=== PATIENT | female | born 1975 | race Caucasian/White ===

== ENCOUNTER → 2017-01-11 | Outpatient (CLI) | payer BC | END | disposition home or self-care (01) | LOC: MW.CHOBGYN 17:00 | PROVIDERS: ATTEND Nurse Practitioner Women's Health | DX: R39.9 Unspecified symptoms and signs involving the genitourinary system (principal) | CPT/HCPCS: 81001 ==

== ENCOUNTER → 2017-01-25 | Outpatient (CLI) | payer BC | LOC: MW.CHFP 09:33 | PROVIDERS: ATTEND Physician Assistant | DX: N39.0 Urinary tract infection, site not specified (principal) | CPT/HCPCS: 81001; 87086 ==

== ENCOUNTER → 2017-02-13 | Outpatient (CLI) | payer BC ==
--- NOTE | 2017-02-13 15:07 | CR ---
EXAMINATION: Right ankle HISTORY: Injury COMPARISON: None TECHNIQUE: 3 views FINDINGS/IMPRESSION: There is no acute osseous abnormality, dislocation, or fracture identified. The re is a well-corticated ossific density anterior to the tibiotalar joint, likely an old injury. The re is moderate soft tissue swelling noted most prominent along the medial malleolus. Joint spaces an d bone mineralization are grossly preserved.
== END ==
LOC: MW.CHFP 10:47
PROVIDERS: ATTEND Physician Assistant
DX: S99.911A Unspecified injury of right ankle, initial encounter (principal); M79.89 Other specified soft tissue disorders
CPT/HCPCS: 73610-26-RT; 73610-RT

== ENCOUNTER 2018-12-26 09:17 | Emergency (ER) | payer BC ==
--- NOTE | 2018-12-26 09:43 | EDM.PDOC ---
ED HPI GENERAL MEDICAL PROBLEM - General Chief Complaint: Lower Extremity Injury/Pain Stated Complaint: PAIN IN LEGS Time Seen by Provider: 12/26/18 09:29 - History of Present Illness INITIAL COMMENTS - FREE TEXT/NARRATIVE: HISTORY AND PHYSICAL: History of present illness: Patient's 43-year-old female presents concerned bilateral lower extremity pain who had recent surgery. She denies chest pain charts breath or other concern Review of systems: As per history of present illness and below otherwise all systems reviewed and negative. Past medical history: As per history of present illness and as reviewed below otherwise noncontributory. Surgical history: As per history of present illness and as reviewed below otherwise noncontributory. Social history: No reported history of drug or alcohol abuse. Family history: As per history of present illness and as reviewed below otherwise noncontributory. Physical exam: Extremities: Atraumatic, negative for cords . Neurovascular unremarkable. Diagnostics: Bilateral venous Doppler Therapeutics: None Impression: #1 Bilateral inferior extremity pain DVT ruled out Definitive disposition and diagnosis as appropriate pending reevaluation and review of above. bilateral calf Pain Score (Numeric/FACES): 3 - Related Data Allergies Allergy/AdvReac Type Severity Reaction Status Date / Time No Known Allergies Allergy Verified 12/26/18 09:26 Home Meds: Home Meds . 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: None Musculoskeletal History: Reports: None Neurological History: Reports: None Psychiatric History: Reports: None Endocrine/Metabolic History: Reports: None Hematologic History: Reports: None Immunologic History: Reports: None Oncologic (Cancer) History: Reports: None Dermatologic History: Reports: None - Past Surgical History Head Surgeries/Procedures: Reports: None HEENT Surgical History: Reports: None Cardiovascular Surgical History: Reports: None Respiratory Surgical History: Reports: None GI Surgical History: Reports: None Female Surgical History: Reports: Hysterectomy Endocrine Surgical History: Reports: None Neurological Surgical History: Reports: None Musculoskeletal Surgical History: Reports: None Oncologic Surgical History: Reports: None Dermatological Surgical History: Reports: None Social & Family History - Family History Family Medical History: Noncontributory - Tobacco Use Smoking Status *Q: Never Smoker Second Hand Smoke Exposure: No - Caffeine Use Caffeine Use: Reports: Soda - Recreational Drug Use Recreational Drug Use: No Review of Systems - Review of Systems Review Of Systems: ROS reveals no pertinent complaints other than HPI. ED EXAM, GENERAL - Physical Exam Exam: See Below (See dictation) Course - Vital Signs Last Recorded V/S: Last Vital Signs Temp 36.1 C 12/26/18 09:25 Pulse 89 12/26/18 09:25 Resp 18 12/26/18 09:25 BP 132/59 L 12/26/18 09:25 Pulse Ox 97 12/26/18 09:25 Departure - Departure Time of Disposition: 11:10 Disposition: Home, Self-Care 01 Condition: Good Clinical Impression: Encounter for medical screening examination, Leg pain - Discharge Information Referrals: Leo Morris MD [Primary Care Provider] - Forms: ED Department Discharge Additional Instructions: The following information is given to patients seen in the emergency department who are being discharged to home. This information is to outline your options for follow-up care. We provide all patients seen in our emergency department with a follow-up referral. The need for follow-up, as well as the timing and circumstances, are variable depending upon the specifics of your emergency department visit. If you don't have a primary care physician on staff, we will provide you with a referral. We always advise you to contact your personal physician following an emergency department visit to inform them of the circumstance of the visit and for follow-up with them and/or the need for any referrals to a consulting specialist. The emergency department will also refer you to a specialist when appropriate. This referral assures that you have the opportunity for followup care with a specialist. All of these measure are taken in an effort to provide you with optimal care, which includes your followup. Under all circumstances we always encourage you to contact your private physician who remains a resource for coordinating your care. When calling for followup care, please make the office aware that this follow-up is from your recent emergency room visit. If for any reason you are refused follow-up, please contact the [facility] emergency department at and asked to speak to the emergency department charge nurse. Follow-up primary medical doctor as needed as discussed and return as needed as discussed
--- NOTE | 2018-12-26 11:01 | US ---
ULTRASOUND EXAMINATION OF the left and right lower extremities WITH DOPPLER HISTORY: Pain FINDINGS: Examination of the left and right lower leg were performed from the groin to the calf region. All visualized segments including common femoral, proximal greater saphenous, superficial femoral, popliteal and calf veins appear patent with good compressibility and augmentation. There is no evidence of deep vein thrombosis. IMPRESSION: No evidence of a DVT.
== END 2018-12-26 11:21 | disposition home or self-care (01) ==
LOC: MW.ED 09:17
DX: M79.604 Pain in right leg (principal); M79.605 Pain in left leg; J45.909 Unspecified asthma, uncomplicated
CPT/HCPCS: 93970; 93970-26; 99283-25

== ENCOUNTER 2019-03-14 01:19 | Emergency (ER) | payer BC ==
[2019-03-14] MEDS ORDERED: Sodium Chloride 0.9% 10 ML Syringe FLUSH PRN (01:26)
[2019-03-14] MEDS ORDERED: Sodium Chloride 0.9% 2.5 ML Syringe FLUSH PRN (01:26)
[2019-03-14] MEDS ORDERED: Sodium Chloride 0.9% 1,000 ML IV ONE (01:28)
[2019-03-14] MEDS ORDERED: HYDROmorphone 1 MG/ML Syringe IVPUSH ONE ×2 (01:28→02:36)
[2019-03-14] MEDS ORDERED: Ondansetron 4 MG/2 ML SDV IVPUSH ONE (01:28)
--- NOTE | 2019-03-14 01:29 | EDM.PDOC ---
ED HPI GENERAL MEDICAL PROBLEM - General Stated Complaint: POSSIBLE BROKEN RIGHT ARM Time Seen by Provider: 03/14/19 01:20 - History of Present Illness INITIAL COMMENTS - FREE TEXT/NARRATIVE: HISTORY AND PHYSICAL: History of present illness: The patient is a 44-year-old female who presents after falling down 12 stairs as she was trying to prevent another person from falling. She did not hit her head pass out or blackout but impacted her right upper extremity and has severe pain to her elbow and wrist with deformity. Neurosensory is intact distally and she has no proximal humerus or shoulder pain and no other extremity complaints. The patient just recently underwent a hysterectomy and is currently taking no medication and is on no blood thinners. The patient denies any neck or back pain. She is not nauseated nor she thrown up and she has no chest wall pain shortness of breath abdominal pain or pelvic pain. She said That she had some alcohol earlier this evening. She has had no systemic complaints over the last few days and has been doing well since her surgery. The patient states solid food at lunchtime yesterday. She has only had liquids since that time Review of systems: As per history of present illness and below otherwise all systems reviewed and negative. Past medical history: As per history of present illness and as reviewed below otherwise noncontributory. Surgical history: As per history of present illness and as reviewed below otherwise noncontributory. Social history: No reported history of drug or alcohol abuse. Family history: As per history of present illness and as reviewed below otherwise noncontributory. Physical exam: General: Well-developed well-nourished female who is really in distress and vital signs were noted by me. She is very talkative and interactive and answering questions appropriately HEENT: Atraumatic, normocephalic, pupils reactive, negative for conjunctival pallor or scleral icterus, mucous membranes moist, throat clear, neck supple, nontender, trachea midline. Teeth are intact, there is no evidence of any facial swelling defects or deformities, no scalp defects or deformities and no midline step-offs tenderness defects of the cervical spine Lungs: Clear to auscultation, breath sounds equal bilaterally, chest nontender. Heart: S1S2, regular, rhythm and tachycardic rate of my evaluation, no overt murmurs Abdomen: Soft, nondistended, nontender. NABS. Negative for costovertebral tenderness. Pelvis: Stable nontender. Genitourinary: Deferred. Rectal: Deferred. Extremities: Atraumatic with full range of motion of all extremities with the exception of the right elbow and wrist where there is diffuse tenderness and swelling at the elbow with inhibited range of motion but no ecchymosis and soft tissue swelling defects and a dinner fork-like deformity seen at the wrist. Pulses are intact and cap refill is intact distally in the patient can move and wiggle the fingers. There is no mid forearm pain no humerus pain or clavicle shoulder pain defects or deformities. At the elbow there is tenderness with palpation of the olecranon and both medial and lateral humeral condyles and exam is difficult due to the soft tissue swelling. The compartments are all soft and there is no tenseness to the forearm.. Neurovascular unremarkable. Neuro: Awake, alert, oriented. Cranial nerves II through XII unremarkable. Cerebellum unremarkable. Motor and sensory unremarkable throughout. Exam nonfocal. Back: There are no midline step-offs tennis defects of the thoracic or lumbar spine no posterior rib or pelvis tenderness Diagnostics: CBC CMP alcohol level x-ray of right wrist and elbow, PT/INR,CT Head Therapeutics: IV fluids Zofran Dilaudid [id number]: case was discussed with the orthopedic surgeon on-call at [facility] , Dr. Smith and he accepts the patient for transfer. He is aware that we do not have orthopedics coverage and that this fracture needs reduction and further care. I have sent the films to [facility] for their review. Case was also discussed with Dr. Huff at 2:30 AM who is aware of the case and accepts. I discussed the x-ray results and shown them to the patient at bedside. She is aware that we do not have orthopedics coverage and that reduction of this fracture needs to be done under sedation and will potentially need operative intervention. We will arrange for transfer to [facility]. She says that she last ate solid food at lunchtime and has only had liquids. She is awake alert interactive and oriented. Pulses are still intact distally and she has good cap refill. I will discuss the [place] of a long arm post mold with the patient and see whether or not she is agreeable. Up to this point she has not been agreeable to anything more than a prefab Styrofoam a cardboard splint. Impression: Comminuted displaced and overriding distal radial fracture with radial head fracture, ulnar styloid fracture all status post fall Definitive disposition and diagnosis as appropriate pending reevaluation and review of above. right forearm Pain Score (Numeric/FACES): 10 - Related Data Allergies Allergy/AdvReac Type Severity Reaction Status Date / Time No Known Allergies Allergy Verified 03/14/19 01:35 Home Meds: Home Meds . [No Known Home Meds] 12/26/18 [History] Past Medical History HEENT History: Reports: None Cardiovascular History: Reports: None Respiratory History: Reports: Asthma Gastrointestinal History: Reports: None Genitourinary History: Reports: UTI, Recurrent TRICHOLOGIST History: Reports: None Musculoskeletal History: Reports: None Neurological History: Reports: None Psychiatric History: Reports: None Endocrine/Metabolic History: Reports: None Hematologic History: Reports: None Immunologic History: Reports: None Oncologic (Cancer) History: Reports: None Dermatologic History: Reports: None - Past Surgical History Head Surgeries/Procedures: Reports: None HEENT Surgical History: Reports: None Cardiovascular Surgical History: Reports: None Respiratory Surgical History: Reports: None GI Surgical History: Reports: None Female Surgical History: Reports: Hysterectomy Endocrine Surgical History: Reports: None Neurological Surgical History: Reports: None Musculoskeletal Surgical History: Reports: None Oncologic Surgical History: Reports: None Dermatological Surgical History: Reports: None Social & Family History - Family History Family Medical History: Noncontributory - Caffeine Use Caffeine Use: Reports: Soda ED ROS GENERAL - Review of Systems Review Of Systems: ROS reveals no pertinent complaints other than HPI. ED EXAM, GENERAL - Physical Exam Exam: See Below (See dictation) Course - Vital Signs Last Recorded V/S: Last Vital Signs Temp 36.2 C 03/14/19 02:30 Pulse 78 03/14/19 02:30 Resp 18 03/14/19 02:30 BP 98/61 03/14/19 02:30 Pulse Ox 96 03/14/19 02:30 - Orders/Labs/Meds Orders: Active Orders 24 hr Category Date Time Status Head wo Cont [CT] Stat Exams 03/14/19 02:27 Ordered Sodium Chloride 0.9% @ 150 MLS/HR (1,000ml) Med 03/14/19 02:45 Ordered Sodium Chloride 0.9% [Normal Saline] 1,000 ml IV ASDIRECTED Sodium Chloride 0.9% [Saline Flush] Med 03/14/19 01:26 Active 10 ml FLUSH ASDIRECTED PRN Sodium Chloride 0.9% [Saline Flush] Med 03/14/19 01:26 Active 2.5 ml FLUSH ASDIRECTED PRN Saline Lock Insert [OM.PC] Stat Oth 03/14/19 01:26 Ordered Medication Orders Sodium Chloride (Normal Saline) 1,000 mls @ 150 mls/hr IV ASDIRECTED EVETTE Sodium Chloride (Saline Flush) 10 ml FLUSH ASDIRECTED PRN PRN Reason: Keep Vein Open Sodium Chloride (Saline Flush) 2.5 ml FLUSH ASDIRECTED PRN PRN Reason: Keep Vein Open Labs: Laboratory Tests 03/14/19 03/14/19 03/14/19 Range/Units 01:50 01:50 01:50 WBC 12.97 H (4.0-11.0) K/uL RBC 4.78 (4.30-5.90) M/uL Hgb 13.9 (12.0-16.0) g/dL Hct 41.2 (36.0-46.0) % MCV 86.2 (80.0-98.0) fL MCH 29.1 (27.0-32.0) pg MCHC 33.7 (31.0-37.0) g/dL RDW Std Deviation 43.2 (28.0-62.0) fl RDW Coeff of Trevin 14 (11.0-15.0) % Plt Count 379 (150-400) K/uL MPV 9.40 (7.40-12.00) fL Neut % (Auto) 60.8 (48.0-80.0) % Lymph % (Auto) 32.8 (16.0-40.0) % Tift % (Auto) 5.6 (0.0-15.0) % Eos % (Auto) 0.6 (0.0-7.0) % Baso % (Auto) 0.2 (0.0-1.5) % Neut # (Auto) 7.9 H (1.4-5.7) K/uL Lymph # (Auto) 4.3 H (0.6-2.4) K/uL Tift # (Auto) 0.7 (0.0-0.8) K/uL Eos # (Auto) 0.1 (0.0-0.7) K/uL Baso # (Auto) 0.0 (0.0-0.1) K/uL INR 1.01 Sodium 140 (136-145) mmol/L Potassium 3.3 L (3.5-5.1) mmol/L Chloride 104 (98-107) mmol/L Carbon Dioxide 18.9 L (21.0-32.0) mmol/L BUN 11 (7.0-18.0) mg/dL Creatinine 1.2 H (0.6-1.0) mg/dL Est Cr Clr Drug Dosing 61.61 mL/min Estimated GFR (MDRD) 49.3 ml/min Glucose 130 H (74-106) mg/dL Calcium 8.7 (8.5-10.1) mg/dL Total Bilirubin 0.2 (0.2-1.0) mg/dL AST 16 (15-37) IU/L ALT 18 (14-63) IU/L Alkaline Phosphatase 86 (46-116) U/L Total Protein 7.9 (6.4-8.2) g/dL Albumin 4.1 (3.4-5.0) g/dL Globulin 3.8 (2.6-4.0) g/dL Albumin/Globulin Ratio 1.1 (0.9-1.6) Ethyl Alcohol 218 mg/dL Meds: Medications Generic Name Dose Route Start Last Admin Trade Name Freq PRN Reason Stop Dose Admin Sodium Chloride 1,000 mls @ 150 mls/hr 03/14/19 02:45 Normal Saline IV ASDIRECTED EVETTE Sodium Chloride 10 ml 03/14/19 01:26 Saline Flush FLUSH ASDIRECTED PRN Keep Vein Open Sodium Chloride 2.5 ml 03/14/19 01:26 Saline Flush FLUSH ASDIRECTED PRN Keep Vein Open Discontinued Medications Generic Name Dose Route Start Last Admin Trade Name Freq PRN Reason Stop Dose Admin Hydromorphone HCl 1 mg 03/14/19 01:28 03/14/19 01:40 Dilaudid IVPUSH 03/14/19 01:29 1 mg ONETIME ONE Administration Hydromorphone HCl 1 mg 03/14/19 02:36 Dilaudid IVPUSH 03/14/19 02:37 ONETIME ONE Hydromorphone HCl Confirm 03/14/19 02:37 Dilaudid Administered 03/14/19 02:38 Dose 1 mg .ROUTE .STK-MED ONE Sodium Chloride 1,000 mls @ 999 mls/hr 03/14/19 01:28 03/14/19 01:49 Normal Saline IV 03/14/19 02:28 999 mls/hr STAT ONE Administration Ondansetron HCl 4 mg 03/14/19 01:28 03/14/19 01:40 Zofran IVPUSH 03/14/19 01:29 4 mg ONETIME ONE Administration Departure - Departure Time of Disposition: 02:42 Disposition: DC/Tfer to Acute Hospital 02 Condition: Fair Clinical Impression: Fracture of radius and ulna Qualifiers: Encounter type: initial encounter Fracture type: closed Laterality: right Qualified Code(s): S52.91XA - Unspecified fracture of right forearm, initial encounter for closed fracture; S52.201A - Unspecified fracture of shaft of right ulna, initial encounter for closed fracture - Discharge Information Referrals: PCP,None [Primary Care Provider] - - My Orders Last 24 Hours: My Active Orders 03/14/19 01:26 Sodium Chloride 0.9% [Saline Flush] 10 ml FLUSH ASDIRECTED PRN Sodium Chloride 0.9% [Saline Flush] 2.5 ml FLUSH ASDIRECTED PRN Saline Lock Insert [OM.PC] Stat 03/14/19 02:27 Head wo Cont [CT] Stat 03/14/19 02:45 Sodium Chloride 0.9% @ 150 MLS/HR (1,000ml) Sodium Chloride 0.9% [Normal Saline ] 1,000 ml IV ASDIRECTED - Assessment/Plan Last 24 Hours: My Active Orders 03/14/19 01:26 Sodium Chloride 0.9% [Saline Flush] 10 ml FLUSH ASDIRECTED PRN Sodium Chloride 0.9% [Saline Flush] 2.5 ml FLUSH ASDIRECTED PRN Saline Lock Insert [OM.PC] Stat 03/14/19 02:27 Head wo Cont [CT] Stat 03/14/19 02:45 Sodium Chloride 0.9% @ 150 MLS/HR (1,000ml) Sodium Chloride 0.9% [Normal Saline ] 1,000 ml IV ASDIRECTED
--- NOTE | 2019-03-14 02:17 | CR ---
Indication: Trauma Technique: A single view of the right humerus Comparison: None available Findings/Impression: Bones: An apparent deformity of the radial head with adjacent fracture fragments. No definite displaced humeral fracture seen. No gross dislocation. Joint spaces: Unremarkable. Soft tissues: Unremarkable. Dictated by Alfonso Estrada MD @ 03/14/2019 2:17:10 AM Dictated by: Alfonso Estrada MD @ 03/14/2019 02:17:15 (Electronically Signed)
--- NOTE | 2019-03-14 02:24 | CR ---
Indication: Trauma Technique: Three views of the right forearm Comparison: None available Findings/Impression: Bones: An apparent radial head fracture with adjacent fracture fragments. A displaced fracture fragment anterior to the distal humerus. Significantly displaced, comminuted distal radial fracture with apparent intra-articular extension. The distal radial articular surface remains in articulation with the carpus and is dorsally displaced in relation to the radial metaphysis. A displaced ulnar styloid fracture. Joint spaces: Unremarkable. Soft tissues: Soft tissue swelling in the distal forearm and wrist. Dictated by Alfonso Estrada MD @ 03/14/2019 2:21:36 AM Dictated by: Alfonso Estrada MD @ 03/14/2019 02:21:43 (Electronically Signed)
[2019-03-14] MEDS ORDERED: HYDROmorphone 1 MG/ML Syringe ONE (02:37)
[2019-03-14] MEDS ORDERED: Sodium Chloride 0.9% 1,000 ML IV SCH (02:45)
--- NOTE | 2019-03-14 03:16 | CT ---
INDICATION: Trauma TECHNIQUE: CT head without contrast. COMPARISON: None available FINDINGS: There is cerebral and mild cerebellar cortical atrophy for the patient`s age. The ventricles are within normal limits. There is no mass effect or midline shift. There is no loss of oleary-white differentiation. There is no evidence of an acute intracranial hemorrhage. No acute calvarial fracture is seen. There are small maxillary sinus mucosal retention cysts or polyps and a single opacified left ethmoid sinus air cell. The mastoid air cells are clear. The visualized orbits are within normal limits. IMPRESSION: No evidence of an acute intracranial hemorrhage, mass effect or loss of oleary-white differentiation. Atrophy for age. Dictated by Alfonso Estrada MD @ 03/14/2019 3:13:54 AM Please note that all CT scans at this facility use dose modulation, iterative reconstruction, and/or weight-based dosing when appropriate to reduce radiation dose to as low as reasonably achievable. Dictated by: Alfonso Estrada MD @ 03/14/2019 03:14:00 (Electronically Signed)
== END 2019-03-14 03:45 ==
LOC: MW.ED 01:19
DX: S52.611A Displaced fracture of right ulna styloid process, initial encounter for closed fracture (principal); S52.571A Other intraarticular fracture of lower end of right radius, initial encounter for closed fracture; S42.401A Unspecified fracture of lower end of right humerus, initial encounter for closed fracture; J45.909 Unspecified asthma, uncomplicated; W10.9XXA Fall (on) (from) unspecified stairs and steps, initial encounter
CPT/HCPCS: 36415; 70450; 73060; 73090; 80053; 85025; 85610; 96361; 96374; 96375; 96376; 99285; G0480; J1170; J2405; J7040